=== PATIENT | male | born 1950 | race Caucasian/White ===

== ENCOUNTER 2018-02-08 09:47 | Inpatient (IN) | payer OTHER ==
[2018-02-08 10:41] LABS: ADD MAN DIFF? NO
[2018-02-08] MEDS: FUROSEMIDE 40 MG INJ IV ×2 (10:42→15:47)
[2018-02-08] MEDS: ASPIRIN 81 MG TAB PO (10:42)
[2018-02-08 10:59] LABS: ALANINE AMINOTRANSFERASE 22 IU/L (13-69); ALBUMIN 3.5 g/dl (3.3-4.9); ALBUMIN/GLOBULIN RATIO 1.09; ALKALINE PHOSPHATASE 80 IU/L (42-121); ANION GAP 17 (8-16); ASPARTATE AMINO TRANSFERASE 22 IU/L (15-46); BILIRUBIN,INDIRECT 0.5 mg/dl (0-1.1); BILIRUBIN,TOTAL 0.5 mg/dl (0.2-1.3); BLOOD UREA NITROGEN 72 mg/dl (7-20); CALCIUM 9.1 mg/dl (8.4-10.2); CARBON DIOXIDE 22 mmol/L (21-31); CHLORIDE 108 mmol/L (97-110); CREATININE 9.46 mg/dl (0.61-1.24); GLUCOSE 122 mg/dl (70-220); LIPASE 59 U/L (23-300); POTASSIUM 4.8 mmol/L (3.5-5.1); SODIUM 142 mmol/L (135-144); TOTAL PROTEIN 6.7 g/dl (6.1-8.1)
[2018-02-08 11:04] LABS: INR 0.98; PROTIME 13.1 Sec (11.9-14.9)
[2018-02-08 11:05] LABS: PARTIAL THROMBOPLASTIN TIME 43.3 Sec (25.0-35.0)
[2018-02-08 11:23] LABS: TROPONIN-I 0.153 ng/ml (0.000-0.120)
[2018-02-08 11:47] LABS: B-TYPE NATRIURETIC PEPTIDE 57300 PG/ML (0-125)
[2018-02-08 12:10] LABS: BASOPHILS % 0.2 % (0.0-2.0); EOSINOPHILS # 0.1 10^3/ul (0.0-0.5); EOSINOPHILS % 1.1 % (0.0-7.0); HEMATOCRIT 28.9 % (42.0-52.0); HEMOGLOBIN 9.4 g/dl (14.0-18.0); LYMPHOCYTES % 9.4 % (15.0-51.0); MEAN CORPUSCULAR HEMOGLOBIN 34.1 pg (29.0-33.0); MEAN CORPUSCULAR HGB CONC 32.5 g/dl (32.0-37.0); MEAN CORPUSCULAR VOLUME 104.7 fl (82.0-101.0); MEAN PLATELET VOLUME 11.8 fl (7.4-10.4); MONOCYTES % 9.6 % (0.0-11.0); NEUTROPHIL # 8.5 10^3/ul (1.6-7.5); NEUTROPHILS % 78.9 % (39.0-77.0); PLATELET COUNT 196 10^3/UL (140-415); RED BLOOD COUNT 2.76 10^6/ul (4.70-6.10)
[2018-02-08 12:10] LABS: WHITE BLOOD COUNT 10.8 10^3/ul (4.8-10.8)
[2018-02-08] MEDS: LEVOFLOXACIN 750MG/D5W (PMX) 150 ML IVPB ×2 (12:37→13:07)
[2018-02-08] MEDS ORDERED: NACL 0.9% 3 ML SYG IV (15:00)
[2018-02-08] MEDS ORDERED: DOCUSATE SODIUM 100 MG CAP PO (15:00)
[2018-02-08] MEDS ORDERED: ACETAMINOPHEN 325 MG TAB PO (15:00)
[2018-02-08] MEDS ORDERED: ONDANSETRON 4 MG INJ IV (15:00)
[2018-02-08] MEDS ORDERED: BISACODYL 10 MG SUPP PR (15:00)
[2018-02-08] MEDS ORDERED: MAGNESIUM HYDROXIDE 30ML CUP PO (15:00)
[2018-02-08] MEDS ORDERED: NITROGLYCERIN (SL) 0.4 MG TAB SL (15:00)
[2018-02-08 17:15] LABS: CREATINE KINASE 68 IU/L (23-200)
[2018-02-08 17:28] LABS: CK INDEX 2.1; CK-MB 1.46 ng/ml (0.0-2.4)
[2018-02-08 17:41] LABS: TROPONIN-I 0.142 ng/ml (0.000-0.120)
[2018-02-08] MEDS: SEVELAMER CARBONATE 2.4 GM PKT PO (20:00)
[2018-02-08] MEDS: CALCIUM ACETATE 667 MG CAP PO (20:00)
[2018-02-08] MEDS: ATORVASTATIN 80 MG TAB PO (21:19)
[2018-02-08] MEDS: LOSARTAN 50 MG TAB PO (21:20)
[2018-02-08] MEDS: FAMOTIDINE 20 MG TAB PO (21:20)
[2018-02-08 23:21] LABS: CREATINE KINASE 57 IU/L (23-200)
[2018-02-08 23:36] LABS: CK INDEX 2.2; CK-MB 1.24 ng/ml (0.0-2.4)
[2018-02-08 23:41] LABS: TROPONIN-I 0.284 ng/ml (0.000-0.120)
[2018-02-09 05:10] LABS: ADD MAN DIFF? NO
[2018-02-09 05:35] LABS: WHITE BLOOD COUNT 9.5 10^3/ul (4.8-10.8)
[2018-02-09 05:35] LABS: BASOPHILS % 0.2 % (0.0-2.0); EOSINOPHILS % 0.3 % (0.0-7.0); HEMATOCRIT 26.2 % (42.0-52.0); HEMOGLOBIN 8.7 g/dl (14.0-18.0); LYMPHOCYTES # 0.8 10^3/ul (0.8-2.9); LYMPHOCYTES % 8.6 % (15.0-51.0); MEAN CORPUSCULAR HEMOGLOBIN 34.9 pg (29.0-33.0); MEAN CORPUSCULAR HGB CONC 33.2 g/dl (32.0-37.0); MEAN CORPUSCULAR VOLUME 105.2 fl (82.0-101.0); MONOCYTE # 0.9 10^3/ul (0.3-0.9); NEUTROPHIL # 7.7 10^3/ul (1.6-7.5); NEUTROPHILS % 81.6 % (39.0-77.0); PLATELET COUNT 170 10^3/UL (140-415); RED BLOOD COUNT 2.49 10^6/ul (4.70-6.10); RED CELL DISTRIBUTION WIDTH 12.8 % (11.5-14.5)
[2018-02-09 06:04] LABS: TROPONIN-I 0.384 ng/ml (0.000-0.120)
[2018-02-09 06:08] LABS: ALANINE AMINOTRANSFERASE 21 IU/L (13-69); ALBUMIN 3.1 g/dl (3.3-4.9); ALBUMIN/GLOBULIN RATIO 1.06; ALKALINE PHOSPHATASE 77 IU/L (42-121); ANION GAP 14 (8-16); ASPARTATE AMINO TRANSFERASE 21 IU/L (15-46); BILIRUBIN,INDIRECT 0.3 mg/dl (0-1.1); BILIRUBIN,TOTAL 0.3 mg/dl (0.2-1.3); BLOOD UREA NITROGEN 78 mg/dl (7-20); CALCIUM 8.4 mg/dl (8.4-10.2); CARBON DIOXIDE 23 mmol/L (21-31); CHLORIDE 109 mmol/L (97-110); CREATININE 8.72 mg/dl (0.61-1.24); GLUCOSE 167 mg/dl (70-220); MAGNESIUM 2.8 mg/dl (1.7-2.5); POTASSIUM 4.2 mmol/L (3.5-5.1); SODIUM 142 mmol/L (135-144)
[2018-02-09 06:10] LABS: CHOL/HDL RATIO 2.5 RATIO; HDL CHOLESTEROL 64 mg/dl (31-75); LDL CHOLESTEROL,CALCULATED 83 mg/dl; TRIGLYCERIDES 83 mg/dl (0-149)
[2018-02-09 06:10] LABS: CHOLESTEROL 164 mg/dl (100-200)
[2018-02-09] MEDS: FUROSEMIDE 40 MG INJ IV ×2 (06:52→17:39)
[2018-02-09] MEDS: CALCIUM ACETATE 667 MG CAP PO ×4 (07:35→17:37)
[2018-02-09] MEDS: SEVELAMER CARBONATE 2.4 GM PKT PO ×4 (07:35→20:34)
[2018-02-09 07:52] LABS: CREATINE KINASE 56 IU/L (23-200)
[2018-02-09] MEDS ORDERED: FUROSEMIDE 40 MG TAB PO (09:00)
[2018-02-09] MEDS: CLOPIDOGREL 75 MG TAB PO (09:07)
[2018-02-09] MEDS: FAMOTIDINE 20 MG TAB PO (09:07)
[2018-02-09] MEDS: ASPIRIN (EC) 81 MG TAB PO (09:08)
[2018-02-09] MEDS: EZETIMIBE 10 MG TAB PO (09:08)
[2018-02-09] MEDS: SPIRONOLACTONE 25 MG TAB PO (09:09)
[2018-02-09] MEDS: CHOLECALCIFEROL 1,000 UNIT TAB PO (09:09)
[2018-02-09] MEDS: LOSARTAN 50 MG TAB PO (09:16)
[2018-02-09] MEDS: SOD CHLORIDE 0.9% 100 ML (15:49)
[2018-02-09] MEDS: IOHEXOL 100 ML (15:50)
[2018-02-09 16:55] LABS: HEPATITIS B SURFACE ANTIGEN NEGATIVE (NEGATIVE)
[2018-02-09 17:12] LABS: HEPATITIS B SURFACE ANTIBODY NEGATIVE (NEGATIVE)
[2018-02-09] MEDS: ATORVASTATIN 80 MG TAB PO (20:28)
[2018-02-09] MEDS: morphine 2 MG INJ IV (23:47)
[2018-02-10] MEDS: FUROSEMIDE 40 MG INJ IV (06:13)
[2018-02-10 07:54] LABS: ANION GAP 17 (8-16); BLOOD UREA NITROGEN 66 mg/dl (7-20); CALCIUM 9.4 mg/dl (8.4-10.2); CARBON DIOXIDE 25 mmol/L (21-31); CHLORIDE 103 mmol/L (97-110); CREATININE 7.42 mg/dl (0.61-1.24); GLUCOSE 233 mg/dl (70-220); POTASSIUM 3.4 mmol/L (3.5-5.1); SODIUM 142 mmol/L (135-144)
[2018-02-10 07:56] LABS: PHOSPHORUS 5.1 mg/dl (2.5-4.9)
[2018-02-10 07:56] LABS: MAGNESIUM 2.5 mg/dl (1.7-2.5)
[2018-02-10] MEDS: SEVELAMER CARBONATE 2.4 GM PKT PO ×2 (08:54→11:50)
[2018-02-10] MEDS: CHOLECALCIFEROL 1,000 UNIT TAB PO (08:55)
[2018-02-10] MEDS: CALCIUM ACETATE 667 MG CAP PO ×2 (08:55→12:04)
[2018-02-10] MEDS: ASPIRIN (EC) 81 MG TAB PO (08:56)
[2018-02-10] MEDS: SPIRONOLACTONE 25 MG TAB PO (08:56)
[2018-02-10] MEDS: CLOPIDOGREL 75 MG TAB PO (08:57)
[2018-02-10] MEDS: EZETIMIBE 10 MG TAB PO (08:57)
[2018-02-10] MEDS: FAMOTIDINE 20 MG TAB PO (08:57)
[2018-02-10] MEDS: LOSARTAN 50 MG TAB PO (08:58)
[2018-02-10] MEDS: POTASSIUM CHLORIDE (SR) 20 MEQ TAB PO (12:04)
== END 2018-02-10 14:46 | disposition home or self-care (01) | DRG 291 ==
LOC: TEL 20:31 → E/R 09:47 → ICU 12:19
PROC: 3E1M39Z Irrigation of Peritoneal Cavity using Dialysate, Percutaneous Approach (ICD-10-PCS; principal; 2018-02-08)
DX: I13.2 Hypertensive heart and chronic kidney disease with heart failure and with stage 5 chronic kidney disease, or end stage renal disease (principal); N18.6 End stage renal disease; I50.23 Acute on chronic systolic (congestive) heart failure; R18.8 Other ascites; R06.03 Acute respiratory distress; D63.1 Anemia in chronic kidney disease; I25.2 Old myocardial infarction; Z95.5 Presence of coronary angioplasty implant and graft; Z99.2 Dependence on renal dialysis; I35.0 Nonrheumatic aortic (valve) stenosis; E78.5 Hyperlipidemia, unspecified; I44.7 Left bundle-branch block, unspecified
CPT/HCPCS: 36415; 71045; 71275; 80048; 80053; 80061; 82550; 82553; 83690; 83735; 83880; 84100; 84443; 84484; 85025; 85610; 85730; 86706; 87040; 87340; 90945; 93005; 93306; 94660; 96374; 99291-25

== ENCOUNTER 2018-02-21 13:21 | Inpatient (IN) | payer OTHER ==
[2018-02-21 15:55] LABS: ADD MAN DIFF? NO
[2018-02-21 16:00] LABS: BASOPHILS % 0.2 % (0.0-2.0); EOSINOPHILS # 0.3 10^3/ul (0.0-0.5); EOSINOPHILS % 3.1 % (0.0-7.0); HEMATOCRIT 29.5 % (42.0-52.0); HEMOGLOBIN 9.7 g/dl (14.0-18.0); LYMPHOCYTES # 1.9 10^3/ul (0.8-2.9); LYMPHOCYTES % 17.3 % (15.0-51.0); MEAN CORPUSCULAR HEMOGLOBIN 34.9 pg (29.0-33.0); MEAN CORPUSCULAR HGB CONC 32.9 g/dl (32.0-37.0); MEAN CORPUSCULAR VOLUME 106.1 fl (82.0-101.0); MEAN PLATELET VOLUME 10.6 fl (7.4-10.4); MONOCYTE # 1.5 10^3/ul (0.3-0.9); MONOCYTES % 13.2 % (0.0-11.0); NEUTROPHIL # 7.3 10^3/ul (1.6-7.5); NEUTROPHILS % 65.8 % (39.0-77.0); PLATELET COUNT 315 10^3/UL (140-415); RED BLOOD COUNT 2.78 10^6/ul (4.70-6.10); RED CELL DISTRIBUTION WIDTH 12.5 % (11.5-14.5)
[2018-02-21 16:17] LABS: ANION GAP 17 (8-16); BLOOD UREA NITROGEN 60 mg/dl (7-20); CARBON DIOXIDE 24 mmol/L (21-31); CHLORIDE 102 mmol/L (97-110); CREATININE 8.56 mg/dl (0.61-1.24); GLUCOSE 96 mg/dl (70-220); POTASSIUM 4.8 mmol/L (3.5-5.1); SODIUM 138 mmol/L (135-144)
[2018-02-21 16:19] LABS: INR 0.93; PROTIME 12.6 Sec (11.9-14.9)
[2018-02-21 16:20] LABS: PARTIAL THROMBOPLASTIN TIME 41.6 Sec (25.0-35.0)
[2018-02-21 17:24] LABS: MAGNESIUM 3.2 mg/dl (1.7-2.5)
[2018-02-21] MEDS: ASPIRIN 81 MG TAB PO (17:24)
[2018-02-21] MEDS ORDERED: ACETAMINOPHEN 325 MG TAB PO ×2 (19:00→20:30)
[2018-02-21] MEDS ORDERED: ONDANSETRON 4 MG INJ IV ×2 (19:00→20:30)
[2018-02-21] MEDS ORDERED: NITROGLYCERIN (SL) 0.4 MG TAB SL (20:30)
[2018-02-21] MEDS ORDERED: MAGNESIUM HYDROXIDE 30ML CUP PO (20:30)
[2018-02-21] MEDS ORDERED: morphine 2 MG INJ IV (20:30)
[2018-02-21] MEDS ORDERED: BISACODYL 10 MG SUPP PR (20:30)
[2018-02-21] MEDS ORDERED: NACL 0.9% 3 ML SYG IV (20:30)
[2018-02-21] MEDS ORDERED: DOCUSATE SODIUM 100 MG CAP PO (20:30)
[2018-02-21] MEDS ORDERED: NON-FORMULARY/PATIENT OWN MED (Carvedilol* 25 MG) PO (21:00)
[2018-02-21] MEDS ORDERED: FAMOTIDINE 20 MG TAB PO (21:00)
[2018-02-21] MEDS ORDERED: NON-FORMULARY/PATIENT OWN MED (Valsartan* (Diovan*) 160 MG) PO (21:00)
[2018-02-21 22:01] LABS: CREATINE KINASE 118 IU/L (23-200)
[2018-02-21 22:12] LABS: CK INDEX 8.9
[2018-02-21] MEDS: ATORVASTATIN 80 MG TAB PO (22:27)
[2018-02-21] MEDS: LOSARTAN 50 MG TAB PO (23:11)
[2018-02-21] MEDS: FAMOTIDINE 20 MG TAB PO (23:12)
[2018-02-22 05:01] LABS: ALANINE AMINOTRANSFERASE 25 IU/L (13-69); ALBUMIN 3.2 g/dl (3.3-4.9); ALBUMIN/GLOBULIN RATIO 1.06; ALKALINE PHOSPHATASE 83 IU/L (42-121); ANION GAP 16 (8-16); ASPARTATE AMINO TRANSFERASE 43 IU/L (15-46); BILIRUBIN,INDIRECT 0.4 mg/dl (0-1.1); BILIRUBIN,TOTAL 0.4 mg/dl (0.2-1.3); BLOOD UREA NITROGEN 65 mg/dl (7-20); CALCIUM 8.6 mg/dl (8.4-10.2); CARBON DIOXIDE 23 mmol/L (21-31); CHLORIDE 105 mmol/L (97-110); CREATINE KINASE 100 IU/L (23-200); CREATININE 8.81 mg/dl (0.61-1.24); GLUCOSE 126 mg/dl (70-220); POTASSIUM 4.5 mmol/L (3.5-5.1); SODIUM 139 mmol/L (135-144); TOTAL PROTEIN 6.2 g/dl (6.1-8.1)
[2018-02-22 05:10] LABS: CK INDEX 8.2; CK-MB 8.19 ng/ml (0.0-2.4)
[2018-02-22] MEDS: CALCIUM ACETATE 667 MG CAP PO ×3 (07:55→17:55)
[2018-02-22 08:18] LABS: ADD MAN DIFF? NO
[2018-02-22 08:20] LABS: BASOPHILS % 0.4 % (0.0-2.0); EOSINOPHILS # 0.4 10^3/ul (0.0-0.5); HEMATOCRIT 28.3 % (42.0-52.0); HEMOGLOBIN 9.1 g/dl (14.0-18.0); LYMPHOCYTES # 1.6 10^3/ul (0.8-2.9); LYMPHOCYTES % 15.7 % (15.0-51.0); MEAN CORPUSCULAR HEMOGLOBIN 34.5 pg (29.0-33.0); MEAN CORPUSCULAR HGB CONC 32.2 g/dl (32.0-37.0); MEAN CORPUSCULAR VOLUME 107.2 fl (82.0-101.0); MONOCYTE # 1.1 10^3/ul (0.3-0.9); MONOCYTES % 11.1 % (0.0-11.0); NEUTROPHILS % 68.2 % (39.0-77.0); PLATELET COUNT 311 10^3/UL (140-415); RED BLOOD COUNT 2.64 10^6/ul (4.70-6.10); RED CELL DISTRIBUTION WIDTH 12.6 % (11.5-14.5)
[2018-02-22 08:20] LABS: WHITE BLOOD COUNT 10.2 10^3/ul (4.8-10.8)
[2018-02-22] MEDS: LOSARTAN 50 MG TAB PO ×3 (08:22→22:47)
[2018-02-22] MEDS: SPIRONOLACTONE 25 MG TAB PO (08:22)
[2018-02-22] MEDS: FUROSEMIDE 40 MG TAB PO (08:23)
[2018-02-22] MEDS: CLOPIDOGREL 75 MG TAB PO (08:24)
[2018-02-22] MEDS: CHOLECALCIFEROL 1,000 UNIT TAB PO (08:24)
[2018-02-22] MEDS: EZETIMIBE 10 MG TAB PO (08:24)
[2018-02-22] MEDS: ASPIRIN (EC) 81 MG TAB PO (08:30)
[2018-02-22 08:38] LABS: CREATINE KINASE 98 IU/L (23-200)
[2018-02-22 08:40] LABS: INR 1.03; PROTIME 13.6 Sec (11.9-14.9); PT RATIO 1.1
[2018-02-22 08:41] LABS: PARTIAL THROMBOPLASTIN TIME 42.8 Sec (25.0-35.0)
[2018-02-22 08:49] LABS: CK-MB 6.98 ng/ml (0.0-2.4)
[2018-02-22] MEDS ORDERED: NON-FORMULARY/PATIENT OWN MED (Clopidogrel Bisulfate* 75 MG) PO (09:00)
[2018-02-22] MEDS ORDERED: HEPARIN 1000 UNITS/ML 10 ML INJ IV (11:30)
[2018-02-22] MEDS: HEPARIN 1000 UNITS/ML 10 ML INJ IV (12:06)
[2018-02-22] MEDS: HEPARIN 25000 UNITS/250 ML 250 ML IV (12:07)
[2018-02-22 12:41] LABS: ADD MAN DIFF? NO
[2018-02-22 12:44] LABS: BASOPHILS % 0.4 % (0.0-2.0); EOSINOPHILS # 0.3 10^3/ul (0.0-0.5); EOSINOPHILS % 3.7 % (0.0-7.0); HEMOGLOBIN 8.4 g/dl (14.0-18.0); LYMPHOCYTES # 1.3 10^3/ul (0.8-2.9); LYMPHOCYTES % 14.5 % (15.0-51.0); MEAN CORPUSCULAR HEMOGLOBIN 33.7 pg (29.0-33.0); MEAN CORPUSCULAR HGB CONC 32.3 g/dl (32.0-37.0); MEAN CORPUSCULAR VOLUME 104.4 fl (82.0-101.0); MEAN PLATELET VOLUME 11.2 fl (7.4-10.4); NEUTROPHIL # 6.4 10^3/ul (1.6-7.5); PLATELET COUNT 284 10^3/UL (140-415); RED BLOOD COUNT 2.49 10^6/ul (4.70-6.10); RED CELL DISTRIBUTION WIDTH 12.7 % (11.5-14.5)
[2018-02-22 12:44] LABS: WHITE BLOOD COUNT 9.2 10^3/ul (4.8-10.8)
[2018-02-22 13:03] LABS: INR 1.23; PROTIME 15.7 Sec (11.9-14.9); PT RATIO 1.2
[2018-02-22 19:05] LABS: INR 1.02; PROTIME 13.5 Sec (11.9-14.9); PT RATIO 1.1
[2018-02-22 19:06] LABS: PARTIAL THROMBOPLASTIN TIME 57.7 Sec (25.0-35.0)
[2018-02-22] MEDS: ATORVASTATIN 80 MG TAB PO ×2 (22:31→22:46)
[2018-02-22] MEDS: FAMOTIDINE 20 MG TAB PO ×2 (22:32→22:47)
[2018-02-22] MEDS: ZOLPIDEM 5 MG TAB PO (23:26)
[2018-02-23 02:52] LABS: PARTIAL THROMBOPLASTIN TIME 94.8 Sec (25.0-35.0)
[2018-02-23] MEDS: CALCIUM ACETATE 667 MG CAP PO ×3 (07:55→18:04)
[2018-02-23] MEDS: ASPIRIN (EC) 81 MG TAB PO (08:09)
[2018-02-23] MEDS: EZETIMIBE 10 MG TAB PO (09:00)
[2018-02-23] MEDS: LOSARTAN 50 MG TAB PO ×2 (09:00→21:29)
[2018-02-23] MEDS: FUROSEMIDE 40 MG TAB PO (09:00)
[2018-02-23] MEDS: CHOLECALCIFEROL 1,000 UNIT TAB PO (09:00)
[2018-02-23] MEDS: SPIRONOLACTONE 25 MG TAB PO (09:00)
[2018-02-23 09:03] LABS: ADD MAN DIFF? NO
[2018-02-23 09:11] LABS: BASOPHILS % 0.4 % (0.0-2.0); EOSINOPHILS # 0.3 10^3/ul (0.0-0.5); EOSINOPHILS % 3.8 % (0.0-7.0); HEMATOCRIT 25.4 % (42.0-52.0); HEMOGLOBIN 8.2 g/dl (14.0-18.0); LYMPHOCYTES # 1.8 10^3/ul (0.8-2.9); LYMPHOCYTES % 22.1 % (15.0-51.0); MEAN CORPUSCULAR HGB CONC 32.3 g/dl (32.0-37.0); MEAN CORPUSCULAR VOLUME 105.4 fl (82.0-101.0); MEAN PLATELET VOLUME 11.5 fl (7.4-10.4); MONOCYTE # 1.3 10^3/ul (0.3-0.9); MONOCYTES % 16.3 % (0.0-11.0); NEUTROPHIL # 4.6 10^3/ul (1.6-7.5); PLATELET COUNT 269 10^3/UL (140-415); RED BLOOD COUNT 2.41 10^6/ul (4.70-6.10); RED CELL DISTRIBUTION WIDTH 12.9 % (11.5-14.5)
[2018-02-23 09:33] LABS: INR 1.01; PROTIME 13.4 Sec (11.9-14.9)
[2018-02-23 09:37] LABS: CREATINE KINASE 52 IU/L (23-200)
[2018-02-23 09:39] LABS: ALANINE AMINOTRANSFERASE 25 IU/L (13-69); ALBUMIN 3.1 g/dl (3.3-4.9); ALKALINE PHOSPHATASE 97 IU/L (42-121); ANION GAP 13 (8-16); ASPARTATE AMINO TRANSFERASE 30 IU/L (15-46); BILIRUBIN,INDIRECT 0.4 mg/dl (0-1.1); BILIRUBIN,TOTAL 0.4 mg/dl (0.2-1.3); BLOOD UREA NITROGEN 71 mg/dl (7-20); CALCIUM 8.4 mg/dl (8.4-10.2); CARBON DIOXIDE 25 mmol/L (21-31); CHLORIDE 107 mmol/L (97-110); CHOL/HDL RATIO 4.2 RATIO; CHOLESTEROL 188 mg/dl (100-200); CREATININE 8.53 mg/dl (0.61-1.24); GLUCOSE 93 mg/dl (70-220); HDL CHOLESTEROL 44 mg/dl (31-75); LDL CHOLESTEROL,CALCULATED 127 mg/dl; SODIUM 141 mmol/L (135-144); TOTAL PROTEIN 6.2 g/dl (6.1-8.1); TRIGLYCERIDES 84 mg/dl (0-149)
[2018-02-23 09:53] LABS: FREE T4 (FREE THYROXINE) 1.07 ng/dl (0.78-2.44)
[2018-02-23 09:55] LABS: CK INDEX 4.4
[2018-02-23] MEDS: CLOPIDOGREL 75 MG TAB PO ×2 (09:58→14:43)
[2018-02-23] MEDS ORDERED: IODIXANOL LOCM 100 ML BTL (10:02)
[2018-02-23] MEDS ORDERED: FENTAnyl 50 MCG/ML VIAL (10:02)
[2018-02-23] MEDS ORDERED: MIDAZOLAM 1 MG/ML 2 ML INJ (10:02)
[2018-02-23 10:08] LABS: PARTIAL THROMBOPLASTIN TIME 61.6 Sec (25.0-35.0)
[2018-02-23] MEDS ORDERED: IOHEXOL 350MG/ML 50 ML BTL (10:41)
[2018-02-23] MEDS ORDERED: VERAPAMIL 5 MG INJ (10:56)
[2018-02-23] MEDS ORDERED: NITROGLYCERIN (IC) 100 MCG/ML INJ (10:58)
[2018-02-23] MEDS ORDERED: BIVALIRUDIN 250MG /NS 50 ML 50 ML IVPB (11:00)
[2018-02-23 11:05] LABS: B-TYPE NATRIURETIC PEPTIDE 47200 PG/ML (0-125)
[2018-02-23] MEDS ORDERED: CLOPIDOGREL 300 MG TAB (11:12)
[2018-02-23] MEDS ORDERED: CLOPIDOGREL 75 MG TAB (11:33)
[2018-02-23] MEDS ORDERED: morphine LIQ (10 MG/5 ML) CUP PO (13:00)
[2018-02-23] MEDS: SOD CHLORIDE 0.9% 1,000 ML IV (14:41)
[2018-02-23] MEDS ORDERED: ATROPINE 1 MG/10 ML SYRINGE (15:26)
[2018-02-23] MEDS: ATORVASTATIN 80 MG TAB PO (21:29)
[2018-02-23] MEDS: FAMOTIDINE 20 MG TAB PO (21:30)
[2018-02-24] MEDS: ZOLPIDEM 5 MG TAB PO (01:39)
[2018-02-24 06:00] LABS: ADD MAN DIFF? NO
[2018-02-24 06:27] LABS: BASOPHILS % 0.3 % (0.0-2.0); EOSINOPHILS # 0.3 10^3/ul (0.0-0.5); EOSINOPHILS % 2.8 % (0.0-7.0); HEMATOCRIT 25.9 % (42.0-52.0); HEMOGLOBIN 8.5 g/dl (14.0-18.0); LYMPHOCYTES # 1.2 10^3/ul (0.8-2.9); LYMPHOCYTES % 13.3 % (15.0-51.0); MEAN CORPUSCULAR HGB CONC 32.8 g/dl (32.0-37.0); MEAN CORPUSCULAR VOLUME 106.6 fl (82.0-101.0); MEAN PLATELET VOLUME 11.4 fl (7.4-10.4); MONOCYTE # 1.4 10^3/ul (0.3-0.9); NEUTROPHIL # 6.3 10^3/ul (1.6-7.5); NEUTROPHILS % 68.3 % (39.0-77.0); PLATELET COUNT 264 10^3/UL (140-415); RED BLOOD COUNT 2.43 10^6/ul (4.70-6.10); RED CELL DISTRIBUTION WIDTH 12.9 % (11.5-14.5)
[2018-02-24 06:27] LABS: WHITE BLOOD COUNT 9.2 10^3/ul (4.8-10.8)
[2018-02-24 06:34] LABS: CREATINE KINASE 49 IU/L (23-200)
[2018-02-24 06:43] LABS: ALANINE AMINOTRANSFERASE 24 IU/L (13-69); ALBUMIN 3.1 g/dl (3.3-4.9); ALBUMIN/GLOBULIN RATIO 1.14; ALKALINE PHOSPHATASE 94 IU/L (42-121); ANION GAP 15 (8-16); ASPARTATE AMINO TRANSFERASE 29 IU/L (15-46); BILIRUBIN,INDIRECT 0.4 mg/dl (0-1.1); BILIRUBIN,TOTAL 0.4 mg/dl (0.2-1.3); BLOOD UREA NITROGEN 68 mg/dl (7-20); CALCIUM 9.2 mg/dl (8.4-10.2); CARBON DIOXIDE 25 mmol/L (21-31); CHLORIDE 105 mmol/L (97-110); CREATININE 7.76 mg/dl (0.61-1.24); GLUCOSE 92 mg/dl (70-220); MAGNESIUM 2.8 mg/dl (1.7-2.5); POTASSIUM 4.4 mmol/L (3.5-5.1); SODIUM 141 mmol/L (135-144); TOTAL PROTEIN 5.8 g/dl (6.1-8.1)
[2018-02-24 06:45] LABS: CK INDEX 5.8; CK-MB 2.85 ng/ml (0.0-2.4)
[2018-02-24] MEDS: CALCIUM ACETATE 667 MG CAP PO ×2 (09:27→13:14)
[2018-02-24] MEDS: CHOLECALCIFEROL 1,000 UNIT TAB PO (09:29)
[2018-02-24] MEDS: ASPIRIN (EC) 81 MG TAB PO (09:30)
[2018-02-24] MEDS: CLOPIDOGREL 75 MG TAB PO (09:30)
[2018-02-24] MEDS: FUROSEMIDE 40 MG TAB PO (09:31)
[2018-02-24] MEDS: EZETIMIBE 10 MG TAB PO (09:31)
[2018-02-24] MEDS: SPIRONOLACTONE 25 MG TAB PO (09:32)
[2018-02-24] MEDS: LOSARTAN 50 MG TAB PO (09:32)
== END 2018-02-24 15:40 | disposition home or self-care (01) | DRG 250 ==
LOC: TEL 18:49 → ICU 02-23 12:30 → E/R 13:21
PROC: 02703ZZ Dilation of Coronary Artery, One Artery, Percutaneous Approach (ICD-10-PCS; principal; 2018-02-23 09:00)
PROC: 4A023N8 Measurement of Cardiac Sampling and Pressure, Bilateral, Percutaneous Approach (ICD-10-PCS; 2018-02-23 09:00)
PROC: B211YZZ Fluoroscopy of Multiple Coronary Arteries using Other Contrast (ICD-10-PCS; 2018-02-23 09:00)
PROC: B215YZZ Fluoroscopy of Left Heart using Other Contrast (ICD-10-PCS; 2018-02-23 09:00)
PROC: 3E1M39Z Irrigation of Peritoneal Cavity using Dialysate, Percutaneous Approach (ICD-10-PCS; 2018-02-23 09:47)
PROC: 3E1M39Z Irrigation of Peritoneal Cavity using Dialysate, Percutaneous Approach (ICD-10-PCS; 2018-02-23 09:47)
DX: T82.855A Stenosis of coronary artery stent, initial encounter (principal); I21.4 Non-ST elevation (NSTEMI) myocardial infarction; N18.6 End stage renal disease; I50.23 Acute on chronic systolic (congestive) heart failure; I13.2 Hypertensive heart and chronic kidney disease with heart failure and with stage 5 chronic kidney disease, or end stage renal disease; I47.2 Ventricular tachycardia; D63.1 Anemia in chronic kidney disease; I25.10 Atherosclerotic heart disease of native coronary artery without angina pectoris; E78.5 Hyperlipidemia, unspecified; I35.0 Nonrheumatic aortic (valve) stenosis; I70.213 Atherosclerosis of native arteries of extremities with intermittent claudication, bilateral legs; Y84.0 Cardiac catheterization as the cause of abnormal reaction of the patient, or of later complication, without mention of misadventure at the time of the procedure; Y92.019 Unspecified place in single-family (private) house as the place of occurrence of the external cause; Z79.02 Long term (current) use of antithrombotics/antiplatelets; Z79.82 Long term (current) use of aspirin; Z87.891 Personal history of nicotine dependence; Z95.5 Presence of coronary angioplasty implant and graft
CPT/HCPCS: 36415; 71045; 80048; 80053; 80061; 82550; 82553; 83735; 83880; 84439; 84443; 84484; 85025; 85610; 85730; 87081; 90945; 92920; 93005; 93460; 99291-25

== ENCOUNTER 2018-02-26 20:12 | Inpatient (IN) | payer OTHER ==
[2018-02-26 20:20] LABS: ADD MAN DIFF? NO
[2018-02-26 20:22] LABS: WHITE BLOOD COUNT 8.9 10^3/ul (4.8-10.8)
[2018-02-26 20:22] LABS: BASOPHILS % 0.3 % (0.0-2.0); EOSINOPHILS # 0.2 10^3/ul (0.0-0.5); EOSINOPHILS % 2.3 % (0.0-7.0); HEMATOCRIT 25.7 % (42.0-52.0); HEMOGLOBIN 8.4 g/dl (14.0-18.0); LYMPHOCYTES # 1.4 10^3/ul (0.8-2.9); LYMPHOCYTES % 15.7 % (15.0-51.0); MEAN CORPUSCULAR HGB CONC 32.7 g/dl (32.0-37.0); MEAN CORPUSCULAR VOLUME 107.1 fl (82.0-101.0); MEAN PLATELET VOLUME 11.4 fl (7.4-10.4); MONOCYTE # 1.4 10^3/ul (0.3-0.9); MONOCYTES % 15.4 % (0.0-11.0); NEUTROPHIL # 5.9 10^3/ul (1.6-7.5); PLATELET COUNT 250 10^3/UL (140-415)
[2018-02-26 20:40] LABS: INR 0.92; PROTIME 12.4 Sec (11.9-14.9)
[2018-02-26 20:41] LABS: PARTIAL THROMBOPLASTIN TIME 40.7 Sec (25.0-35.0)
[2018-02-26 20:46] LABS: ANION GAP 16 (8-16); BLOOD UREA NITROGEN 63 mg/dl (7-20); CALCIUM 10.1 mg/dl (8.4-10.2); CARBON DIOXIDE 25 mmol/L (21-31); CHLORIDE 102 mmol/L (97-110); CREATININE 9.02 mg/dl (0.61-1.24); GLUCOSE 154 mg/dl (70-220); POTASSIUM 4.3 mmol/L (3.5-5.1); SODIUM 139 mmol/L (135-144)
[2018-02-26 21:03] LABS: TROPONIN-I 0.886 ng/ml (0.000-0.120)
[2018-02-26] MEDS ORDERED: BISACODYL (EC) 5 MG TAB PO (23:00)
[2018-02-26] MEDS ORDERED: HYDROCODONE/APAP (5/325) TAB PO (23:00)
[2018-02-26] MEDS ORDERED: NACL 0.9% 3 ML SYG IV (23:00)
[2018-02-26] MEDS ORDERED: DOCUSATE SODIUM 100 MG CAP PO (23:00)
[2018-02-26] MEDS ORDERED: NITROGLYCERIN (SL) 0.4 MG TAB SL (23:00)
[2018-02-26] MEDS ORDERED: MAGNESIUM HYDROXIDE 30ML CUP PO (23:00)
[2018-02-26] MEDS ORDERED: ACETAMINOPHEN 325 MG TAB PO (23:00)
[2018-02-26] MEDS ORDERED: ONDANSETRON 4 MG TAB PO (23:00)
[2018-02-26 23:51] LABS: CREATINE KINASE 44 IU/L (23-200)
[2018-02-27 00:03] LABS: CK INDEX 4.9; CK-MB 2.14 ng/ml (0.0-2.4)
[2018-02-27] MEDS: FAMOTIDINE 20 MG TAB PO ×2 (00:56→09:52)
[2018-02-27] MEDS: HEPARIN 5,000 UNIT/0.5 ML VIAL SC ×4 (00:58→20:33)
[2018-02-27] MEDS: LORAZEPAM 1 MG TAB PO (01:48)
[2018-02-27] MEDS: FUROSEMIDE 40 MG TAB PO (05:49)
[2018-02-27 06:39] LABS: HEMOGLOBIN A1C 5.9 % (0-5.9)
[2018-02-27 06:46] LABS: CREATINE KINASE 39 IU/L (23-200)
[2018-02-27 06:57] LABS: CK-MB 1.94 ng/ml (0.0-2.4)
[2018-02-27 07:07] LABS: CHOL/HDL RATIO 4.4 RATIO; HDL CHOLESTEROL 41 mg/dl (31-75); LDL CHOLESTEROL,CALCULATED 118 mg/dl; TRIGLYCERIDES 123 mg/dl (0-149)
[2018-02-27 07:07] LABS: CHOLESTEROL 184 mg/dl (100-200)
[2018-02-27] MEDS: LOSARTAN 50 MG TAB PO ×2 (09:51→20:27)
[2018-02-27] MEDS: NICOTINE (14 MG/24 HR) PATCH TRANSDERM (09:51)
[2018-02-27] MEDS: SPIRONOLACTONE 25 MG TAB PO (09:52)
[2018-02-27] MEDS: CHOLECALCIFEROL 1,000 UNIT TAB PO (09:52)
[2018-02-27] MEDS: ASPIRIN (EC) 81 MG TAB PO (09:52)
[2018-02-27] MEDS: EZETIMIBE 10 MG TAB PO (09:52)
[2018-02-27] MEDS: CLOPIDOGREL 75 MG TAB PO (09:52)
[2018-02-27] MEDS: CALCIUM ACETATE 667 MG CAP PO ×3 (09:52→17:40)
[2018-02-27 12:08] LABS: CREATINE KINASE 42 IU/L (23-200)
[2018-02-27 12:16] LABS: CK INDEX 3.8; CK-MB 1.59 ng/ml (0.0-2.4)
[2018-02-27 12:18] LABS: TROPONIN-I 0.914 ng/ml (0.000-0.120)
[2018-02-27] MEDS: FUROSEMIDE 40 MG INJ IV (14:04)
[2018-02-27] MEDS: ATORVASTATIN 80 MG TAB PO (20:24)
[2018-02-28] MEDS: LORAZEPAM 1 MG TAB PO (00:20)
[2018-02-28] MEDS: FUROSEMIDE 40 MG TAB PO (05:35)
[2018-02-28] MEDS: HEPARIN 5,000 UNIT/0.5 ML VIAL SC (05:41)
[2018-02-28 05:55] LABS: ADD MAN DIFF? NO
[2018-02-28 06:09] LABS: BASOPHILS % 0.3 % (0.0-2.0); EOSINOPHILS # 0.2 10^3/ul (0.0-0.5); EOSINOPHILS % 2.3 % (0.0-7.0); HEMOGLOBIN 7.9 g/dl (14.0-18.0); LYMPHOCYTES # 1.5 10^3/ul (0.8-2.9); LYMPHOCYTES % 19.3 % (15.0-51.0); MEAN CORPUSCULAR HEMOGLOBIN 33.9 pg (29.0-33.0); MEAN CORPUSCULAR HGB CONC 31.6 g/dl (32.0-37.0); MEAN CORPUSCULAR VOLUME 107.3 fl (82.0-101.0); MEAN PLATELET VOLUME 12.1 fl (7.4-10.4); MONOCYTE # 1.3 10^3/ul (0.3-0.9); MONOCYTES % 15.7 % (0.0-11.0); NEUTROPHIL # 4.9 10^3/ul (1.6-7.5); PLATELET COUNT 225 10^3/UL (140-415); RED BLOOD COUNT 2.33 10^6/ul (4.70-6.10); RED CELL DISTRIBUTION WIDTH 13.2 % (11.5-14.5)
[2018-02-28 06:58] LABS: ANION GAP 20 (8-16); BLOOD UREA NITROGEN 70 mg/dl (7-20); CALCIUM 9.5 mg/dl (8.4-10.2); CARBON DIOXIDE 22 mmol/L (21-31); CHLORIDE 103 mmol/L (97-110); CREATININE 9.19 mg/dl (0.61-1.24); GLUCOSE 134 mg/dl (70-220); POTASSIUM 3.8 mmol/L (3.5-5.1); SODIUM 141 mmol/L (135-144)
[2018-02-28] MEDS: CALCIUM ACETATE 667 MG CAP PO ×2 (08:23→12:33)
[2018-02-28] MEDS: ASPIRIN (EC) 81 MG TAB PO (08:24)
[2018-02-28] MEDS: CLOPIDOGREL 75 MG TAB PO (08:24)
[2018-02-28] MEDS: FAMOTIDINE 20 MG TAB PO (08:24)
[2018-02-28] MEDS: CHOLECALCIFEROL 1,000 UNIT TAB PO (08:24)
[2018-02-28] MEDS: EZETIMIBE 10 MG TAB PO (08:24)
[2018-02-28] MEDS: SPIRONOLACTONE 25 MG TAB PO (08:24)
[2018-02-28] MEDS: NICOTINE (14 MG/24 HR) PATCH TRANSDERM (08:26)
[2018-02-28] MEDS: LOSARTAN 50 MG TAB PO (08:35)
[2018-02-28] MEDS ORDERED: traZODone 50 MG TAB PO (21:00)
== END 2018-02-28 13:50 | disposition home or self-care (01) | DRG 291 ==
LOC: E/R 20:12 → 6WM 22:10
PROC: 3E1M39Z Irrigation of Peritoneal Cavity using Dialysate, Percutaneous Approach (ICD-10-PCS; principal; 2018-02-27)
DX: I13.2 Hypertensive heart and chronic kidney disease with heart failure and with stage 5 chronic kidney disease, or end stage renal disease (principal); I50.23 Acute on chronic systolic (congestive) heart failure; N18.6 End stage renal disease; I47.1 Supraventricular tachycardia; I42.9 Cardiomyopathy, unspecified; I35.0 Nonrheumatic aortic (valve) stenosis; F17.210 Nicotine dependence, cigarettes, uncomplicated; E78.5 Hyperlipidemia, unspecified; I25.10 Atherosclerotic heart disease of native coronary artery without angina pectoris; Z99.2 Dependence on renal dialysis; Z79.82 Long term (current) use of aspirin; Z95.5 Presence of coronary angioplasty implant and graft
CPT/HCPCS: 36415; 71045; 80048; 80061; 82550; 82553; 83036; 84443; 84484; 85025; 85610; 85730; 87081; 90945; 93005; 99291-25

== ENCOUNTER 2018-10-17 10:08 | Inpatient (IN) | payer OTHER ==
[2018-10-17 11:12] LABS: ADD MAN DIFF? NO
[2018-10-17 11:17] LABS: ABNORMAL IP MESSAGE 1; BASOPHILS % 0.3 % (0.0-2.0); EOSINOPHILS # 0.1 10^3/ul (0.0-0.5); EOSINOPHILS % 0.6 % (0.0-7.0); HEMATOCRIT 30.2 % (42.0-52.0); LYMPHOCYTES # 1.1 10^3/ul (0.8-2.9); LYMPHOCYTES % 7.5 % (15.0-51.0); MEAN CORPUSCULAR HEMOGLOBIN 35.7 pg (29.0-33.0); MEAN CORPUSCULAR HGB CONC 33.1 g/dl (32.0-37.0); MEAN CORPUSCULAR VOLUME 107.9 fl (82.0-101.0); MEAN PLATELET VOLUME 10.5 fl (7.4-10.4); MONOCYTE # 1.7 10^3/ul (0.3-0.9); MONOCYTES % 12.1 % (0.0-11.0); NEUTROPHIL # 11.3 10^3/ul (1.6-7.5); NEUTROPHILS % 78.6 % (39.0-77.0); NUCLEATED RED BLOOD CELLS # 0.1 10^3/ul (0.0-0.0); NUCLEATED RED BLOOD CELLS% 0.3 /100WBC (0.0-0.0); PLATELET COUNT 174 10^3/UL (140-415); POSITIVE DIFF @See below; RED CELL DISTRIBUTION WIDTH 17.2 % (11.5-14.5)
[2018-10-17 11:17] LABS: WHITE BLOOD COUNT 14.3 10^3/ul (4.8-10.8)
[2018-10-17 11:37] LABS: ALANINE AMINOTRANSFERASE 14 IU/L (13-69); ALBUMIN 4.6 g/dl (3.3-4.9); ALBUMIN/GLOBULIN RATIO 1.39; ALKALINE PHOSPHATASE 105 IU/L (42-121); AMYLASE 90 U/L (11-123); ANION GAP 22 (5-13); ASPARTATE AMINO TRANSFERASE 22 IU/L (15-46); BILIRUBIN,INDIRECT 0.3 mg/dl (0-1.1); BILIRUBIN,TOTAL 0.3 mg/dl (0.2-1.3); BLOOD UREA NITROGEN 53 mg/dl (7-20); CARBON DIOXIDE 23 mmol/L (21-31); CHLORIDE 94 mmol/L (97-110); CREATININE 9.08 mg/dl (0.61-1.24); Estimated GFR 6 mL/min (>60); GLUCOSE 124 mg/dl (70-220); LIPASE 145 U/L (23-300); POTASSIUM 5.7 mmol/L (3.5-5.1); SODIUM 139 mmol/L (135-144); TOTAL PROTEIN 7.9 g/dl (6.1-8.1)
[2018-10-17 11:38] LABS: INR 1.01; PROTIME 13.4 Sec (11.9-14.9)
[2018-10-17 11:39] LABS: PARTIAL THROMBOPLASTIN TIME 47.1 Sec (23.0-35.0)
[2018-10-17] MEDS: CA CHLORIDE 10% 10 ML SYRINGE IV (12:19)
[2018-10-17] MEDS: NA BICARBONATE 8.4% 50 ML SYG IV (12:20)
[2018-10-17] MEDS: NA POLYST SULFON 15 GM/60 ML BTL PO (12:21)
[2018-10-17] MEDS: ALBUTEROL 0.5% (NEB) 2.5 MG/0.5 ML AMP INH (12:30)
[2018-10-17 12:46] LABS: TROPONIN-I 0.256 ng/ml (0.000-0.120)
[2018-10-17] MEDS ORDERED: ONDANSETRON 4 MG INJ IV ×2 (13:30→14:00)
[2018-10-17] MEDS ORDERED: ACETAMINOPHEN 325 MG TAB PO ×2 (13:30→14:00)
[2018-10-17] MEDS: ASPIRIN (EC) 325 MG TAB PO (13:37)
[2018-10-17] MEDS ORDERED: DOCUSATE SODIUM 100 MG CAP PO (14:00)
[2018-10-17] MEDS ORDERED: NACL 0.9% 3 ML SYG IV (14:00)
[2018-10-17] MEDS: FUROSEMIDE 40 MG TAB PO (15:00)
[2018-10-17] MEDS: ASPIRIN (EC) 81 MG TAB PO (15:00)
[2018-10-17] MEDS: CALCIUM ACETATE 667 MG CAP PO (17:17)
[2018-10-17 17:22] LABS: CREATINE KINASE 39 IU/L (23-200)
[2018-10-17 17:34] LABS: CK INDEX 4.1; CK-MB 1.61 ng/ml (0.0-2.4)
[2018-10-17 17:45] LABS: TROPONIN-I 0.211 ng/ml (0.000-0.120)
[2018-10-17] MEDS: HYDROmorphONE 0.5 MG/0.5 ML SYG IV (19:32)
[2018-10-17 19:57] LABS: CREATINE KINASE 40 IU/L (23-200)
[2018-10-17 20:10] LABS: CK INDEX 4.3; CK-MB 1.71 ng/ml (0.0-2.4)
[2018-10-17 20:15] LABS: TROPONIN-I 0.214 ng/ml (0.000-0.120)
[2018-10-17 20:30] LABS: HEPATITIS B SURFACE ANTIGEN NEGATIVE (NEGATIVE)
[2018-10-17] MEDS: ATORVASTATIN 80 MG TAB PO (20:43)
[2018-10-17] MEDS: EZETIMIBE 10 MG TAB PO (20:43)
[2018-10-17 20:47] LABS: HEPATITIS B SURFACE ANTIBODY NEGATIVE (NEGATIVE)
[2018-10-18] MEDS: HYDROmorphONE 0.5 MG/0.5 ML SYG IV (01:03)
[2018-10-18] MEDS: PANTOPRAZOLE (EC) 40 MG TAB PO (05:55)
[2018-10-18] MEDS ORDERED: PENDING SANTYL ORDER FOR WOUND CARE XX ×2 (06:00→06:30)
[2018-10-18 06:11] LABS: ADD MAN DIFF? NO
[2018-10-18 06:15] LABS: BASOPHILS % 0.2 % (0.0-2.0); EOSINOPHILS # 0.2 10^3/ul (0.0-0.5); EOSINOPHILS % 1.5 % (0.0-7.0); HEMATOCRIT 25.4 % (42.0-52.0); HEMOGLOBIN 8.3 g/dl (14.0-18.0); LYMPHOCYTES # 1.5 10^3/ul (0.8-2.9); LYMPHOCYTES % 14.8 % (15.0-51.0); MEAN CORPUSCULAR HEMOGLOBIN 35.2 pg (29.0-33.0); MEAN CORPUSCULAR HGB CONC 32.7 g/dl (32.0-37.0); MEAN CORPUSCULAR VOLUME 107.6 fl (82.0-101.0); MEAN PLATELET VOLUME 11.1 fl (7.4-10.4); MONOCYTE # 0.9 10^3/ul (0.3-0.9); MONOCYTES % 8.7 % (0.0-11.0); NEUTROPHIL # 7.5 10^3/ul (1.6-7.5); NEUTROPHILS % 74.3 % (39.0-77.0); NUCLEATED RED BLOOD CELLS% 0.3 /100WBC (0.0-0.0); PLATELET COUNT 141 10^3/UL (140-415); RED BLOOD COUNT 2.36 10^6/ul (4.70-6.10)
[2018-10-18 06:33] LABS: ANION GAP 14 (5-13); BLOOD UREA NITROGEN 58 mg/dl (7-20); CALCIUM 10.3 mg/dl (8.4-10.2); CARBON DIOXIDE 24 mmol/L (21-31); CHLORIDE 100 mmol/L (97-110); CREATININE 8.82 mg/dl (0.61-1.24); Estimated GFR 6 mL/min (>60); GLUCOSE 106 mg/dl (70-220); PHOSPHORUS 7.7 mg/dl (2.5-4.9); POTASSIUM 5.2 mmol/L (3.5-5.1); SODIUM 138 mmol/L (135-144)
[2018-10-18 06:47] LABS: HEMOGLOBIN A1C 5.3 % (0-5.9)
[2018-10-18 07:17] LABS: % IRON SATURATION 19 % SAT (22-52)
[2018-10-18 07:20] LABS: IRON 39 ug/dl (35-150); TOTAL IRON BINDING CAPACITY 205 ug/dl (241-421)
[2018-10-18] MEDS: ASPIRIN (EC) 81 MG TAB PO (07:47)
[2018-10-18] MEDS: FUROSEMIDE 40 MG TAB PO (07:47)
[2018-10-18] MEDS: CALCIUM ACETATE 667 MG CAP PO (07:47)
[2018-10-18] MEDS: CLOPIDOGREL 75 MG TAB PO (08:47)
[2018-10-18] MEDS: HEPARIN 1000 UNITS/ML 10 ML INJ CATHETER (08:49)
[2018-10-18] MEDS: NA POLYST SULFON 15 GM/60 ML BTL PO (11:04)
[2018-10-18] MEDS: LACTULOSE 30ML CUP PO (11:04)
== END 2018-10-18 11:30 | disposition home or self-care (01) | DRG 391 ==
LOC: E/R 10:08 → MS3 13:20 → 6WM 19:09
DX: R10.32 Left lower quadrant pain (principal); N18.6 End stage renal disease; I42.9 Cardiomyopathy, unspecified; I25.10 Atherosclerotic heart disease of native coronary artery without angina pectoris; Z95.2 Presence of prosthetic heart valve; Z99.2 Dependence on renal dialysis; E87.5 Hyperkalemia; Z98.61 Coronary angioplasty status; R79.89 Other specified abnormal findings of blood chemistry
CPT/HCPCS: 74176; 80048; 80053; 82150; 82550; 82553; 82728; 83036; 83540; 83690; 84100; 84484; 85025; 85610; 85730; 86706; 87340; 90935; 93005; 93306; 94664; 96374; 99285-25

== ENCOUNTER 2018-11-08 13:41 | Inpatient (IN) | payer OTHER ==
[2018-11-08] MEDS: SOD CHLORIDE 0.9% 500 ML IV (13:54)
[2018-11-08 13:55] LABS: ADD MAN DIFF? NO
[2018-11-08] MEDS: ASPIRIN 325 MG TAB PO (13:55)
[2018-11-08] MEDS: FAMOTIDINE 20 MG INJ IV (13:59)
[2018-11-08] MEDS: ONDANSETRON 4 MG INJ IV ×2 (14:00→16:29)
[2018-11-08 14:01] LABS: WHITE BLOOD COUNT 6.3 10^3/ul (4.8-10.8)
[2018-11-08 14:01] LABS: BASOPHILS % 0.3 % (0.0-2.0); EOSINOPHILS # 0.1 10^3/ul (0.0-0.5); EOSINOPHILS % 1.4 % (0.0-7.0); HEMOGLOBIN 9.7 g/dl (14.0-18.0); LYMPHOCYTES % 16.6 % (15.0-51.0); MEAN CORPUSCULAR HEMOGLOBIN 36.1 pg (29.0-33.0); MEAN CORPUSCULAR HGB CONC 33.4 g/dl (32.0-37.0); MEAN CORPUSCULAR VOLUME 107.8 fl (82.0-101.0); MEAN PLATELET VOLUME 11.4 fl (7.4-10.4); MONOCYTE # 0.7 10^3/ul (0.3-0.9); MONOCYTES % 10.7 % (0.0-11.0); NEUTROPHIL # 4.4 10^3/ul (1.6-7.5); NEUTROPHILS % 70.7 % (39.0-77.0); NUCLEATED RED BLOOD CELLS # 0.1 10^3/ul (0.0-0.0); PLATELET COUNT 181 10^3/UL (140-415); RED BLOOD COUNT 2.69 10^6/ul (4.70-6.10); RED CELL DISTRIBUTION WIDTH 15.4 % (11.5-14.5)
[2018-11-08 14:18] LABS: ALANINE AMINOTRANSFERASE 10 IU/L (13-69); ALBUMIN 4.6 g/dl (3.3-4.9); ALBUMIN/GLOBULIN RATIO 1.43; ALKALINE PHOSPHATASE 104 IU/L (42-121); ANION GAP 31 (5-13); ASPARTATE AMINO TRANSFERASE 22 IU/L (15-46); BILIRUBIN,INDIRECT 0.3 mg/dl (0-1.1); BILIRUBIN,TOTAL 0.3 mg/dl (0.2-1.3); BLOOD UREA NITROGEN 58 mg/dl (7-20); CALCIUM 10.4 mg/dl (8.4-10.2); CARBON DIOXIDE 14 mmol/L (21-31); CHLORIDE 90 mmol/L (97-110); CREATINE KINASE 57 IU/L (23-200); CREATININE 10.91 mg/dl (0.61-1.24); Estimated GFR 5 mL/min (>60); GLUCOSE 114 mg/dl (70-220); SODIUM 135 mmol/L (135-144); TOTAL PROTEIN 7.8 g/dl (6.1-8.1)
[2018-11-08 14:20] LABS: INR 1.08; PROTIME 14.1 Sec (11.9-14.9); PT RATIO 1.1
[2018-11-08 14:21] LABS: PARTIAL THROMBOPLASTIN TIME 45.6 Sec (23.0-35.0)
[2018-11-08 14:27] LABS: POTASSIUM 8.2 mmol/L (3.5-5.1)
[2018-11-08 14:33] LABS: CK INDEX 6.3; TROPONIN-I 0.025 ng/ml (0.000-0.120)
[2018-11-08] MEDS: NA BICARBONATE 8.4% 50 ML SYG IV (14:34)
[2018-11-08] MEDS: CA CHLORIDE 10% 10 ML SYRINGE IV (14:34)
[2018-11-08] MEDS: SODIUM POLYSTYRENE 15 GM KIT (POWDER + SORBITOL) PO (14:42)
[2018-11-08] MEDS: ALBUTEROL 0.5% (NEB) 2.5 MG/0.5 ML AMP INH (15:10)
[2018-11-08] MEDS: SOD CHLORIDE 0.9% 1,000 ML IV (16:28)
[2018-11-08] MEDS ORDERED: ONDANSETRON 4 MG INJ IV ×2 (17:30→19:00)
[2018-11-08] MEDS ORDERED: ACETAMINOPHEN 325 MG TAB PO ×2 (17:30→19:00)
[2018-11-08] MEDS: FENTAnyl 50 MCG/ML VIAL IV (17:47)
[2018-11-08] MEDS ORDERED: LIDOCAINE 1% (MDV) 20 ML INJ INJ (18:00)
[2018-11-08] MEDS ORDERED: NACL 0.9% 3 ML SYG IV (19:00)
[2018-11-08] MEDS ORDERED: DOCUSATE SODIUM 100 MG CAP PO (19:00)
[2018-11-08] MEDS: ALBUMIN HUMAN 25% 50 ML IV (19:52)
[2018-11-08] MEDS: EZETIMIBE 10 MG TAB PO (21:48)
[2018-11-08] MEDS: traMADol 50 MG TAB PO (21:49)
[2018-11-08] MEDS: ATORVASTATIN 80 MG TAB PO (21:49)
[2018-11-08] MEDS: CLOPIDOGREL 75 MG TAB PO (21:49)
[2018-11-08] MEDS: FAMOTIDINE 20 MG TAB PO (21:49)
[2018-11-08] MEDS: HEPARIN 1000 UNITS/ML 10 ML INJ CATHETER (22:41)
[2018-11-08] MEDS ORDERED: HEPARIN 1000 UNITS/ML 10 ML INJ CATHETER (23:00)
[2018-11-09 01:42] LABS: ANION GAP 16 (5-13); BLOOD UREA NITROGEN 32 mg/dl (7-20); CALCIUM 9.2 mg/dl (8.4-10.2); CARBON DIOXIDE 25 mmol/L (21-31); CHLORIDE 97 mmol/L (97-110); CREATININE 5.65 mg/dl (0.61-1.24); Estimated GFR 10 mL/min (>60); GLUCOSE 179 mg/dl (70-220); SODIUM 138 mmol/L (135-144)
[2018-11-09 08:13] LABS: ADD MAN DIFF? NO
[2018-11-09] MEDS: CLOPIDOGREL 75 MG TAB PO (08:27)
[2018-11-09] MEDS: CALCIUM ACETATE 667 MG CAP PO (08:27)
[2018-11-09] MEDS: CHOLECALCIFEROL 1,000 UNIT TAB PO (08:28)
[2018-11-09] MEDS: FUROSEMIDE 40 MG TAB PO (08:28)
[2018-11-09] MEDS: FAMOTIDINE 20 MG TAB PO (08:28)
[2018-11-09] MEDS: ASPIRIN (EC) 81 MG TAB PO (08:28)
[2018-11-09 08:30] LABS: WHITE BLOOD COUNT 6.8 10^3/ul (4.8-10.8)
[2018-11-09 08:30] LABS: BASOPHILS % 0.4 % (0.0-2.0); EOSINOPHILS # 0.1 10^3/ul (0.0-0.5); EOSINOPHILS % 1.3 % (0.0-7.0); HEMATOCRIT 28.1 % (42.0-52.0); HEMOGLOBIN 9.3 g/dl (14.0-18.0); LYMPHOCYTES # 1.1 10^3/ul (0.8-2.9); LYMPHOCYTES % 16.5 % (15.0-51.0); MEAN CORPUSCULAR HEMOGLOBIN 35.2 pg (29.0-33.0); MEAN CORPUSCULAR HGB CONC 33.1 g/dl (32.0-37.0); MEAN CORPUSCULAR VOLUME 106.4 fl (82.0-101.0); MEAN PLATELET VOLUME 11.5 fl (7.4-10.4); MONOCYTE # 0.9 10^3/ul (0.3-0.9); MONOCYTES % 13.6 % (0.0-11.0); NEUTROPHIL # 4.6 10^3/ul (1.6-7.5); NEUTROPHILS % 67.9 % (39.0-77.0); NUCLEATED RED BLOOD CELLS # 0.2 10^3/ul (0.0-0.0); NUCLEATED RED BLOOD CELLS% 2.6 /100WBC (0.0-0.0); PLATELET COUNT 166 10^3/UL (140-415); RED BLOOD COUNT 2.64 10^6/ul (4.70-6.10); RED CELL DISTRIBUTION WIDTH 15.6 % (11.5-14.5)
[2018-11-09 08:39] LABS: HEMOGLOBIN A1C 5.4 % (0-5.9)
[2018-11-09 08:44] LABS: ANION GAP 17 (5-13); BLOOD UREA NITROGEN 35 mg/dl (7-20); CALCIUM 9.2 mg/dl (8.4-10.2); CARBON DIOXIDE 26 mmol/L (21-31); CHLORIDE 95 mmol/L (97-110); CREATININE 6.71 mg/dl (0.61-1.24); Estimated GFR 8 mL/min (>60); GLUCOSE 79 mg/dl (70-220); MAGNESIUM 2.5 mg/dl (1.7-2.5); POTASSIUM 4.4 mmol/L (3.5-5.1); SODIUM 138 mmol/L (135-144)
[2018-11-10] MEDS ORDERED: EPOETIN ALFA-EPBX (ESRD) 10,000 UNIT/ML VIAL SC (17:00)
== END 2018-11-09 10:34 | disposition home or self-care (01) | DRG 640 ==
LOC: E/R 13:41 → TEL 17:25
PROC: 5A1D70Z Performance of Urinary Filtration, Intermittent, Less than 6 Hours Per Day (ICD-10-PCS; principal; 2018-11-08)
DX: E87.5 Hyperkalemia (principal); N18.6 End stage renal disease; I13.2 Hypertensive heart and chronic kidney disease with heart failure and with stage 5 chronic kidney disease, or end stage renal disease; N17.9 Acute kidney failure, unspecified; I50.9 Heart failure, unspecified; E86.0 Dehydration; I35.0 Nonrheumatic aortic (valve) stenosis; F17.210 Nicotine dependence, cigarettes, uncomplicated; Z99.2 Dependence on renal dialysis; I25.10 Atherosclerotic heart disease of native coronary artery without angina pectoris; Z95.5 Presence of coronary angioplasty implant and graft; Z90.49 Acquired absence of other specified parts of digestive tract; F41.9 Anxiety disorder, unspecified; Z79.01 Long term (current) use of anticoagulants; Z95.2 Presence of prosthetic heart valve; I73.9 Peripheral vascular disease, unspecified; Z91.15 Patient's noncompliance with renal dialysis; T62.91XA Toxic effect of unspecified noxious substance eaten as food, accidental (unintentional), initial encounter; R11.2 Nausea with vomiting, unspecified; Y92.89 Other specified places as the place of occurrence of the external cause
CPT/HCPCS: 71045; 80048; 80053; 82550; 82553; 83036; 83735; 84484; 85025; 85610; 85730; 90935; 93005; 94664; 96374; 96375; 96376; 99291-25